=== PATIENT | female | born 1990 | race Caucasian/White ===

== ENCOUNTER 2022-11-07 13:35 | Emergency (ER) | payer BC ==
[2022-11-07 13:41] VITALS: BP 124/85; PULSE 83; RESP 18; TEMP 97.7; BMI 27.4
[2022-11-07] MEDS ORDERED: IBUPROFEN 600 MG TABLET (FP) PO ONE ×2 (14:27→14:33)
== END 2022-11-07 14:40 | disposition home or self-care (01) ==
LOC: FER 13:35
DX: S93.402A Sprain of unspecified ligament of left ankle, initial encounter (principal); W13.4XXA Fall from, out of or through window, initial encounter; X50.0XXA Overexertion from strenuous movement or load, initial encounter
CPT/HCPCS: 73610-TC-LT-FY; 99283-25